=== PATIENT | male | born 1970 | race African-American/Black ===

== ENCOUNTER 2020-02-22 08:46 | Emergency (ER) | payer SELFPAY ==
[~2020-02-22] VITALS: Ht 177.8 cm; Wt 81.8 kg
[2020-02-22 08:54] VITALS: Ht 177.8 cm; Wt 81.8 kg
[2020-02-22 09:13] LABS: BASOPHILS 0.3 % (0-2); EOSINOPHILS 0.3 % (0-7); HEMATOCRIT 41.7 % (42.0-54.0); HEMOGLOBIN 14.5 g/dL (13.5-17.5); IMMATURE GRANULOCYTES 0.2 % (0-5); LYMPHOCYTES 36.2 % (15-50); MCH 31.7 pg (26.0-34.0); MCHC 34.8 g/dL (31.0-37.0); MCV 91.2 fL (80.0-100.0); MEAN PLATELET VOLUME 9.7 fL (7.4-10.4); MONOCYTES 14.3 % (2-11); NEUTROPHILS 48.7 % (40-80); PLATELET COUNT 240 10x3/uL (130-400); RBC 4.57 10x6/uL (4.20-6.10); RDW 12.6 % (11.5-14.5); WBC 6.1 10x3/uL (4.8-10.8)
[2020-02-22 09:27] LABS: ANION GAP 11.2 mmol/L (8-16); CALCIUM 9.6 mg/dL (8.5-10.1); CARBON DIOXIDE 26.9 mmol/L (21.0-32.0); CREATININE - SERUM 1.2 mg/dL (0.6-1.3); POTASSIUM - SERUM 4.1 mmol/L (3.5-5.1)
[2020-02-22 09:33] LABS: BILIRUBIN - TOTAL 0.67 mg/dL (0.2-1.3); MAGNESIUM - SERUM 1.9 mg/dL (1.8-2.4); PROTEIN - SERUM 7.5 g/dL (6.4-8.2)
[2020-02-22 09:38] LABS: BILIRUBIN NEGATIVE (NEGATIVE); KETONE SMALL mg/dL (NEGATIVE); NITRITE NEGATIVE (NEGATIVE); UROBILINOGEN NORMAL mg/dL (< 2)
[2020-02-22 09:46] LABS: UDS - AMPHET NEGATIVE QUAL (NEGATIVE); UDS - BARB NEGATIVE QUAL (NEGATIVE); UDS - BENZO NEGATIVE QUAL (NEGATIVE); UDS - COCAINE POSITIVE QUAL (NEGATIVE); UDS - OPIATE NEGATIVE QUAL (NEGATIVE); UDS - PCP NEGATIVE QUAL (NEGATIVE); UDS - THC NEGATIVE QUAL (NEGATIVE)
--- NOTE | 2020-02-22 10:15 | NUR ---
DR. COLLINS NOTIFIED AND SITTER ORDERED. SITTER AT BEDSIDE. NOTIFIED CHARGE NURSE AND ATTENDING IN REGARDS TO ASSESSMENT FINDINGS. RESOURCES GIVEN TO PT AND SAFETY PLAN INITIATED.
[2020-02-22 19:24] VITALS: BP 126/73
== END 2020-02-22 19:25 ==
LOC: D.ER 08:46
PROVIDERS: Family Medicine
DX: R45.851 Suicidal ideations (principal); R44.0 Auditory hallucinations; F32.9 Major depressive disorder, single episode, unspecified; F19.11 Other psychoactive substance abuse, in remission